=== PATIENT | male | born 1960 | race Caucasian/White ===

== ENCOUNTER → 2019-10-10 | Outpatient (CLI) | payer OTHER ==
[~2019-10-10] MED LIST: ATOR20TA58 PO
== END | disposition home or self-care (01) ==
LOC: LAB 07:30
PROVIDERS: ATTEND Nurse Anesthetist, Certified Registered
DX: Z01.818 Encounter for other preprocedural examination (principal); Z11.59 Encounter for screening for other viral diseases; Z12.11 Encounter for screening for malignant neoplasm of colon; Z86.010 Personal history of colon polyps
CPT/HCPCS: U0003-CS

== ENCOUNTER → 2019-10-13 | Day surgery (SDC) | payer OTHER ==
[~2019-10-13] MED LIST changes: +CEPH500T PO; +IPRATRPIUM/ALBUTEROL 0.5/2.5MG 3 ML NEBU. NEB PRN; +IV RINGERS SOLUTION,LACTATED 1,000 ML IV SCH; +MIDAZOLAM HCL PF 2 MG/2 ML VIAL. IV ONE; +ONDANSETRON PF 4 MG/2 ML VIAL. IV PRN; +PROPOFOL 10,000 MCG/ML (20ML) VIAL IV ONE
[2019-10-13 10:25] VITALS: BP 120/72
== END | disposition home or self-care (01) ==
LOC: SURG 07:59
PROVIDERS: ATTEND Internal Medicine Gastroenterology
DX: Z12.11 Encounter for screening for malignant neoplasm of colon (principal); K64.8 Other hemorrhoids; K57.30 Diverticulosis of large intestine without perforation or abscess without bleeding; K63.89 Other specified diseases of intestine; E78.00 Pure hypercholesterolemia, unspecified; Z79.899 Other long term (current) drug therapy; Z98.890 Other specified postprocedural states
CPT/HCPCS: 45378; J2250; J2704; J7120

== ENCOUNTER 2019-10-22 18:49 | Emergency (ER) | payer OTHER ==
[~2019-10-22] VITALS: Ht 177.8 cm; Wt 95.5 kg
[~2019-10-22 18:49] MED LIST changes: -CEPH500T PO; -IPRATRPIUM/ALBUTEROL 0.5/2.5MG 3 ML NEBU. NEB PRN; -IV RINGERS SOLUTION,LACTATED 1,000 ML IV SCH; -MIDAZOLAM HCL PF 2 MG/2 ML VIAL. IV ONE; -ONDANSETRON PF 4 MG/2 ML VIAL. IV PRN; -PROPOFOL 10,000 MCG/ML (20ML) VIAL IV ONE
[2019-10-22 18:50] VITALS: BP 147/106
[2019-10-22] MEDS ORDERED: DIPH,PERTUSS(ACELL),TET VAC/PF 0.5 ML SYRINGE. VAX IM ONE (19:15)
[2019-10-22] MEDS ORDERED: LIDOCAINE 1% PF 30 ML VIAL. INJ ONE (19:30)
[2019-10-22] MEDS ORDERED: CEPH500T PO (19:45)
--- NOTE | 2019-10-22 19:45 | PHYS DOC ---
Past History Past Medical History: No Pertinent History Past Surgical History: No Surgical History Alcohol Use: Occasionally General Adult EDM: Chief Complaint: LACERATION/AVULSION HPI: HPI: Patient is a 59-year-old male who presented to ER today for evaluation of left hand laceration. Patient said he was working to fix some [employer] furniture a 1 hour ago, a drill bit broke and accidentally cut his left palm. His last tetanus shot was more than 5 years ago. Patient can move all his fingers without any problem. Patient denies any weakness or numbness on the injured hand. Review of Systems: Review of Systems: Constitutional: Denies fever or chills Eyes: Denies change in visual acuity HENT: Denies nasal congestion or sore throat Respiratory: Denies cough or shortness of breath Cardiovascular: Denies chest pain or edema GI: Denies abdominal pain, nausea, vomiting, bloody stools or diarrhea : Denies dysuria Musculoskeletal: Denies back pain or joint pain Integument: POSITIVE FOR LACERATION OF LEFT HAND, ARREOLA SURFACE. Neurologic: Denies headache, focal weakness or sensory changes Endocrine: Denies polyuria or polydipsia Lymphatic: Denies swollen glands Psychiatric: Denies depression or anxiety Heart Score: Risk Factors: Risk Factors: DM, Current or recent (<one month) smoker, HTN, HLP, family history of CAD, obesity. Risk Scores: Score 0 - 3: 2.5% MACE over next 6 weeks - Discharge Home Score 4 - 6: 20.3% MACE over next 6 weeks - Admit for Clinical Observation Score 7 - 10: 72.7% MACE over next 6 weeks - Early Invasive Strategies Current Medications: Current Meds: Current Medications Medications (Trade) Dose Ordered Sig/Dominic Start Time Stop Time Status Last Admin Dose Admin Diphtheria/ Pertussis/Tetanus Vacc (ADACEL TDap SYRINGE) 0.5 ml ONCE ONCE 10/22/19 19:15 10/22/19 19:16 DC 10/22/19 19:33 0.5 ML Lidocaine HCl (Lidocaine 1% Pf) 30 ml 1X ONCE 10/22/19 19:30 10/22/19 19:31 DC 10/22/19 19:30 30 ML Allergies: Allergies: Allergies Coded Allergies Type Severity Reaction Last Updated Verified No Known Drug Allergies 10/07/19 No Physical Exam: PE: Constitutional: Well developed, well nourished, no acute distress, non-toxic appearance. [] HENT: Normocephalic, atraumatic, bilateral external ears normal, oropharynx moist, no oral exudates, nose normal. [] Eyes: PERRLA, EOMI, conjunctiva normal, no discharge. [] Neck: Normal range of motion, no tenderness, supple, no stridor. [] Cardiovascular:Heart rate regular rhythm, no murmur [] Lungs & Thorax: Bilateral breath sounds clear to auscultation [] Abdomen: Bowel sounds normal, soft, no tenderness, no masses, no pulsatile masses. [] Skin: Warm, dry, 4 CM LACERATION ON LEFT HAND , ARREOLA SURFACE AT THE THENAR EMINENCE AREA, BLEEDING OOZING, NO TENDON INJURY, NO MUSCLE INJURY. PATIENT CAN MOVE ALL FINGERS WITHOUT ANY PROBLEM. Back: No tenderness, no CVA tenderness. [] Extremities: No tenderness, no cyanosis, no clubbing, ROM intact, no edema. [] Neurologic: Alert and oriented X 3, normal motor function, normal sensory function, no focal deficits noted. [] Psychologic: Affect normal, judgement normal, mood normal. [] Current Patient Data: Vital Signs: Vital Signs Date Time Temp Pulse Resp B/P (MAP) Pulse Ox O2 Delivery O2 Flow Rate FiO2 10/22/19 18:50 98.4 70 16 147/106 (120) 98 Room Air EKG: EKG: [] Radiology/Procedures: Radiology/Procedures: [Indication: left hand Procedure: The patient was placed in the appropriate position and anesthesia around the wound with 10 ml of 1% lidocaine. The area was then cleaned with betadine and saline. The laceration was closed with 7 sutures, 3-0-nylon subcutaneous by simple interruptous method. The wound area was then dressed with bacitracin and gauze. Total repaired wound length: 4 cm Other Items: NO ACTIVE BLEEDING, NO TENDON INJURY. The patient tolerated the procedure WELL. Complications: NO Course & Med Decision Making: Course & Med Decision Making Pertinent Labs and Imaging studies reviewed. (See chart for details) Dragon Disclaimer: Dragon Disclaimer: This electronic medical record was generated, in whole or in part, using a voice recognition dictation system. Departure Departure: Impression: Primary Impression: Laceration of left hand Disposition: 01 HOME/RESIDENCE PRIOR TO ADM Condition: STABLE Referrals: PITO MILLAN DO (PCP) please follow up with your doctor in 7-10 days for sutures removal Patient Instructions: Laceration Care, Adult, VIS, Tetanus, Diphtheria, and Pertussis (Tdap) - CDC Scripts Cephalexin (CEPHALEXIN) 500 Mg Tablet 1 TAB PO QID for laceration for 5 Days, #20 TAB Prov: SOPHIE BILLINGSLEY DO 10/22/19 Justification of Admission: Justification of Admission: Justification of Admission Dx: N/A SOPHIE BILLINGSLEY DO Oct 22, 2019 19:45
[2019-10-22] MEDS ORDERED: CEPHALEXIN 250 MG CAPSULE PO ONE (20:00)
== END 2019-10-22 20:22 | disposition home or self-care (01) ==
LOC: ER 18:49
DX: S61.412A Laceration without foreign body of left hand, initial encounter (principal); W26.8XXA Contact with other sharp object(s), not elsewhere classified, initial encounter; Y93.89 Activity, other specified; Y92.89 Other specified places as the place of occurrence of the external cause; Y99.8 Other external cause status
CPT/HCPCS: 12002; 90471; 90715; 99283; J2001